=== PATIENT | male | born 1950 | race Caucasian/White ===

== ENCOUNTER 2017-03-17 00:25 | Day surgery (SDC) | payer BC, OTHER ==
[~2017-03-17] VITALS: Ht 177.8 cm; Wt 105.7 kg
[~2017-03-17 00:25] MED LIST: ASPI-1471 PO; ASPI-663 PO; ATR80PT PO; CITA-139 PO; FISH OIL1 CAP PO; MULT-1335 PO; NAPR-1043 PO; RAMI10CA72 PO
[2017-03-17] MEDS ORDERED: PROPOFOL EMUL(*) 10MG/ML 20 ML 40 ML ONE (09:34)
[2017-03-17] MEDS ORDERED: LIDOCAINE MPF 1% 5 ML VIAL ONE (09:34)
[2017-03-17 09:36] VITALS: BP 122/81
[2017-03-17] MEDS ORDERED: LIDOCAINE/SOD BICARB 8.4% SYR ID ONE (09:40)
[2017-03-17] MEDS ORDERED: NORMOSOL R SOLN(*) 1000 ML BAG 1,000 ML IV PRN (09:40)
[2017-03-17] MEDS ORDERED: MIDAZOLAM 2 MG/2 ML VIAL IVP PRN (09:40)
[2017-03-17 11:13] VITALS: BP 103/69
[2017-03-17 11:42] VITALS: BP 113/70
[2017-03-17 12:00] VITALS: BP 118/80
[2017-03-17 12:02] VITALS: BP 105/85
== END 2017-03-17 12:10 | disposition home or self-care (01) ==
LOC: OR 00:25
PROVIDERS: ATTEND Internal Medicine
DX: Z12.11 Encounter for screening for malignant neoplasm of colon (principal)
CPT/HCPCS: 00812; 45378; J2001; J2704